=== PATIENT | female | born 1970 | race Caucasian/White ===

== ENCOUNTER 2016-11-21 09:45 | Emergency (ER) | payer OTHER ==
[~2016-11-21] VITALS: Ht 162.6 cm; Wt 86.5 kg
[~2016-11-21 09:45] MED LIST: HEADACHE MEDICATION; MOBIC15 MG PO
[2016-11-21 10:53] LABS: INFLUENZA A VIRAL ANTIGEN NEGATIVE; INFLUENZA B VIRAL ANTIGEN POSITIVE
[2016-11-21] MEDS ORDERED: HYCODAN SYRUP480 ML PO (10:56)
[2016-11-21] MEDS ORDERED: ZOFRAN ODT4 MG PO (10:56)
[2016-11-21 11:03] VITALS: BP 132/97
== END 2016-11-21 11:03 | disposition home or self-care (01) ==
LOC: EME 09:45
DX: J10.2 Influenza due to other identified influenza virus with gastrointestinal manifestations (principal); J06.9 Acute upper respiratory infection, unspecified; R51 Headache; Z87.891 Personal history of nicotine dependence
CPT/HCPCS: 71020; 87502; 99281; 99284

== ENCOUNTER 2017-06-23 19:04 | Emergency (ER) | payer OTHER ==
[~2017-06-23] VITALS: Ht 162.6 cm; Wt 87.0 kg
[~2017-06-23 19:04] MED LIST changes: +HYCODAN SYRUP480 ML PO; +ZOFRAN ODT4 MG PO
[2017-06-23] MEDS ORDERED: VALIUM5 MG PO (20:10)
[2017-06-23] MEDS ORDERED: MOTRIN800 MG PO (20:10)
[2017-06-23] MEDS ORDERED: NORCO 7.5/321 TABLET PO (20:10)
[2017-06-23 20:38] VITALS: BP 149/98
== END 2017-06-23 20:38 | disposition home or self-care (01) ==
LOC: EME 19:04
DX: S39.012A Strain of muscle, fascia and tendon of lower back, initial encounter (principal); X58.XXXA Exposure to other specified factors, initial encounter; M51.36 Other intervertebral disc degeneration, lumbar region; R03.0 Elevated blood-pressure reading, without diagnosis of hypertension; Z87.891 Personal history of nicotine dependence
CPT/HCPCS: 99281; 99283